=== PATIENT | female | born 1960 | race Caucasian/White ===

== ENCOUNTER 2017-03-28 07:07 | Emergency (ER) | payer BC ==
[~2017-03-28] VITALS: Ht 154.9 cm; Wt 64.9 kg
[~2017-03-28 07:07] MED LIST: ASPIR 8181 M1 PO; DAILY VITE1 EAC1 PO; LISINOPRIL10 MG PO; PREMARIN VAGI42.5 GM VG; SIMVASTATIN40 MG PO; ZOFRAN ODT4 MG PO
[2017-03-28] MEDS ORDERED: INDERAL20 MG PO (08:27)
[2017-03-28] MEDS ORDERED: ESTRING1 EACH VG (08:28)
[2017-03-28] MEDS ORDERED: BENADRYL25 MG PO ×2 (08:29→09:18)
[2017-03-28] MEDS ORDERED: DAYTIME COLD-F1 EAC2 PO (08:30)
[2017-03-28] MEDS ORDERED: AIRBORNE EFFER1 EACH PO (08:31)
[2017-03-28] MEDS ORDERED: PREDNISONE20 MG PO (09:18)
[2017-03-28] MEDS ORDERED: ZANTAC150 MG PO (09:18)
[2017-03-28 09:22] VITALS: BP 118/92
== END 2017-03-28 09:33 | disposition home or self-care (01) ==
LOC: EME 07:07
DX: T50.905A Adverse effect of unspecified drugs, medicaments and biological substances, initial encounter (principal); I10 Essential (primary) hypertension; E78.5 Hyperlipidemia, unspecified; Z79.82 Long term (current) use of aspirin; Z88.0 Allergy status to penicillin
CPT/HCPCS: 99281; 99283; J7512